=== PATIENT | female | born 1980 | race Caucasian/White ===

== ENCOUNTER 2024-04-08 10:02 | Emergency (ER) | payer BC, SELFPAY ==
[2024-04-08 10:20] VITALS: BP 115/75
[2024-04-08] MEDS: TYLENOL 1000 MG PO (11:05)
[2024-04-08 11:12] VITALS: BMI 20.4
[2024-04-08 11:22] LABS: % Basophils 0.2 % (0-2); % Eosinophils 0.4 % (0-6); % Immature Granulocytes 0.2 % (0-0.5); % Lymphocytes 8.9 % (20.5-51.1); % Monocytes 8.9 % (1.7-9.3); % Neutrophils 81.4 % (42.2-75.2); Absolute Lymphocytes 0.5 10^3/uL (1.2-3.4); Absolute Monocytes 0.5 10^3/uL (0.1-0.6); Absolute Neutrophils 4.6 10^3/uL (1.4-6.5); Hematocrit 33.9 % (37.0-47.0); Hemoglobin 11.6 g/dL (12.0-16.0); Mean Corp Hgb Conc. 34.2 g/dL (33.0-37.0); Mean Corpuscular Hgb 32.1 pg (27.0-31.0); Mean Corpuscular Volume 93.9 fL (81.0-99.0); Mean Platelet Volume 9.7 fL (7.4-10.4); Nucleated Red Blood Cells % 0 %; Platelet Count 246 10^3/uL (130-400); Red Blood Cell Count 3.61 10^6/uL (4.20-5.40); Red Cell Dist. Width 12.9 % (11.5-14.5); White Blood Cell Count 5.6 10^3/uL (4.8-10.8)
[2024-04-08 11:31] LABS: ALT (SGPT) 45 U/L (0-35); AST (SGOT) 43 U/L (14-36); Albumin 3.9 g/dl (3.5-5.0); Alkaline Phosphatase 50 U/L (38-126); Blood Urea Nitrogen 3 mg/dl (7-17); Calcium 8.7 mg/dl (8.4-10.2); Carbon Dioxide 27 mmol/L (22-30); Chloride 101 mmol/L (98-107); Estimated Creatinine Clearance 93 ml/min; Glucose 119 mg/dl (70-99); Potassium 3.9 mmol/L (3.5-5.1); Sodium 141 mmol/L (135-145); Total Bilirubin 0.3 mg/dl (0.2-1.3); Total Protein 7.2 g/dl (6.3-8.2); eGFR > 60.00
[2024-04-08 11:38] LABS: COVID-19 Antigen Negative (Negative)
[2024-04-08 11:50] LABS: Monotest Positive (Negative)
--- NOTE | 2024-04-08 12:23 | ED.GENMED ---
History of Present Illness
General
Chief Complaint: Fever
Source: patient
Time Seen by Provider: 04/08/24 10:46
History of Present Illness
History of Present Illness:
43-year-old female with no significant past medical history presenting to the emergency department for evaluation of cold and upper respiratory like symptoms that been ongoing for about 1 month. Patient states that she was initially coming back
home from [place] and developed some mild GI symptoms which then developed into a sore throat and mild cough. She went to urgent care and was tested for COVID and flu which were negative and started on amoxicillin for possible strep throat. Patient
states she took this for about 4 days, started to feel little bit better and discontinued the medication thinking that symptoms were possibly viral. Shortly after this she started with continued cough and fevers with Tmax of 104, went back to the
urgent care and was given Augmentin which she is taken 9 total days of but remains still with fever and cough. Patient was also given an albuterol inhaler but states she continues to cough and have fever. No known sick contacts. Patient does note
recent travel to [place], the [place] and [place] for work travel.
Past History
Past History
ED Past Medical History: None
ED Past Surgical History: None
Social History
Tobacco: Non-smoker
Alcohol: Occasional
Drug: None
Personal:
Living: with family
Employment: Employed
Review of Systems
Review of Systems
All Other Systems: ROS reviewed and negative except as documented in HPI and ROS
Phy Exam
Physical Exam
Physical Exam:
GENERAL: Alert , in no apparent distress
EYE: conjunctiva clear
NECK: Supple
ENT: o/p clr, mmm.
CARDIAC: Regular rate and rhythm
LUNGS: Clear breath sounds bilaterally, no acute respiratory distress, no wheezes/rales/rhonchi
ABDOMEN: soft, non-tender, non-distended, no HSM
NEUROLOGICAL: Alert and oriented
SKIN: Warm and dry, skin intact.
MUSCULOSKELETAL: well perfused.
PSYCH: Normal and appropriate interaction.
Scores
Heart Failure Risk
Heart Failure Risk Score: Not Applicable
Heart Score for Chest Pain Patients
STEMI patient?: Not applicable
Withdrawal Assessment of Alcohol
Withdrawal Assessment Completed?: Not applicable
Sepsis
Sepsis Screening
Sepsis Assessment: Sepsis Ruled Out
Sepsis Screen
Sepsis Screen: Sepsis Ruled Out
Date: 04/08/24
Time: 13:46
Course
Orders/Labs/Results
Orders:
Orders
04/08/24 11:00
Chest [CR Chest - 2 Views ] Urgent
Comment:
Reason For Exam: cough
04/08/24 11:03
Acetaminophen [Tylenol] 1,000 mg PO NOW STA
04/08/24 11:09
CBC/With Diff [Complete Blood Count/With Diff] Urgent
CMP [Comprehensive Metabolic Panel] Urgent
COVID-19 Antigen Urgent
Source: Nasal Swab
Monotest Urgent
Comment: ADD ON
Influenza A+B Rapid Molecular Urgent
LACHELLE Source: Nasal Swab
Specimen Description:
04/08/24 11:28
Add On- LAB Urgent
Tests Added?: monotest
Abnormal Lab Results
04/08/24
11:09
RBC 3.61 L 10^6/uL
(4.20-5.40)
Hgb 11.6 L g/dL
(12.0-16.0)
Hct 33.9 L %
(37.0-47.0)
MCH 32.1 H pg
(27.0-31.0)
Absolute Lymphs (auto) 0.5 L 10^3/uL
(1.2-3.4)
Neutrophils % 81.4 H %
(42.2-75.2)
Lymphocytes % 8.9 L %
(20.5-51.1)
BUN 3 L mg/dl
(7-17)
Creatinine 0.5 L mg/dL
(0.6-1.0)
Glucose 119 H mg/dl
(70-99)
AST 43 H U/L
(14-36)
ALT 45 H U/L
(0-35)
Monoscreen Positive A
(Negative)
04/08/24 11:09
04/08/24 11:09
Vital Signs
Initial and Last Documented VS:
Initial Vital Signs
Temp Pulse Resp BP Pulse Ox
102.8 F H 103 18 115/75 98
04/08/24 10:20 04/08/24 10:20 04/08/24 10:20 04/08/24 10:20 04/08/24 10:20
Last Documented Vital Signs
Temp Pulse Resp BP Pulse Ox
102.8 F H 97 15 118/76 98
04/08/24 10:20 04/08/24 12:46 04/08/24 12:46 04/08/24 12:46 04/08/24 12:46
MDM/Problems Addressed
Differential Diagnosis Includes:
COVID, flu, other viral etiology, pneumonia, mono
MDM/Problems Addressed:
43-year-old female presenting to the emergency department for evaluation of persistent fevers, cough and generally feeling fatigued over the last month or so. Was on a course of amoxicillin but admittedly discontinued this after only 4 days, also
given Augmentin which she is taking 9 total days of without any relief. She is still febrile here at 102.8. 1 g of Tylenol given. Will check labs, chest x-ray, COVID and flu testing. Reassessment following
*Radiology
Radiology exam reviewed: preliminary read by ED provider (Right middle to upper lobe pneumonia)
*Pulse Oximetry
Patient hypoxic: no
*[employer] Interpretation
Rate: normal
Rhythm: sinus
*Critical Care Note
Total Time (30-74mins, 75-104mins- exclusive of procedures): Not Applicable
Patient Management
Escalation/DeEscalation of care consider admission/obs:
Patient's chest x-ray shows a right middle lobe pneumonia. Her labs do reveal a positive monotest which is likely why patient's illness has been more prolonged. Will cover her for atypical organisms for her pneumonia with a Z-Yannick. Recommended
follow-up with primary care provider. Patient is otherwise stable for discharge home.
ED Attending Note
-
Portions of this chart may have been created with voice recognition software.� Occasional wrong word or��sound alike� substitutions may have occurred due to the inherent limitations of voice recognition software.
Discharge Plan
Departure
Patient Disposition: Home (Routine Discharge)
Date of Disposition: 04/08/24
Time of Disposition: 12:23
Patient with high blood pressure during this ER visit?: No
Discharge Problem:
Pneumonia, Mononucleosis
Instructions: Pneumonia, Adult (DC), Mononucleosis
Prescriptions:
New
azithromycin [Zithromax] 250 mg tablet
250 mg PO DAILY Qty: 6 0RF
Rx Instructions:
Take 2 tabs day 1 and 1 tab remaining 4 days
Referrals:
Osvaldo Dumont MD [Family Provider] -
Interventions
Interventions:
*Risk Screen - Suicide Last Done: 04/08/24 10:20
*General Assessment Last Done: 04/08/24 10:20
*Neglect/Abuse Screening Last Done: 04/08/24 10:20
ED- Fall Risk Assessment Last Done: 04/08/24 11:12
*Nursing Disposition Last Done: 04/08/24 12:47
ED- Cardiac Assessment Last Done: 04/08/24 11:12
ED- Neurological Assessment Last Done: 04/08/24 11:12
ED- Pulmonary Assessment Last Done: 04/08/24 11:12
ED-Skin Assessment Last Done: 04/08/24 11:12
Discharge Date and Time
Discharge Date/Time: 04/08/24 12:48
Print Language: IVORIAN
[2024-04-08 12:46] VITALS: BP 118/76
== END 2024-04-08 12:48 | disposition home or self-care (01) ==
LOC: EMR 10:02
PROVIDERS: Physician Assistant Medical; EMERGENCY PHYSICIAN Emergency Medicine; FAMILY PHYSICIAN Internal Medicine
DX: J18.9 Pneumonia, unspecified organism (principal); B27.90 Infectious mononucleosis, unspecified without complication
CPT/HCPCS: 99284; 71046; 80053; 85025; 86308; 87502; 87811